=== PATIENT | female | born 1980 | race Asian ===

== ENCOUNTER → 2018-02-12 | Outpatient (CLI) | payer OTHER | END | disposition home or self-care (01) | LOC: CVU 13:56 | PROVIDERS: ATTEND Genetic Counselor, MS | DX: I87.2 Venous insufficiency (chronic) (peripheral) (principal); I83.813 Varicose veins of bilateral lower extremities with pain | CPT/HCPCS: 93970 ==

== ENCOUNTER → 2018-04-07 | Outpatient (CLI) | payer OTHER | END | disposition home or self-care (01) | LOC: CVU 08:36 | PROVIDERS: ATTEND Internal Medicine Cardiovascular Disease | DX: I87.2 Venous insufficiency (chronic) (peripheral) (principal) | CPT/HCPCS: 93971 ==

== ENCOUNTER 2018-04-27 15:47 | Emergency (ER) | payer OTHER ==
[~2018-04-27] VITALS: Ht 160 cm; Wt 89.9 kg
[2018-04-27 15:58] VITALS: BP 155/100
== END 2018-04-27 17:01 | disposition home or self-care (01) ==
LOC: ED 16:45
DX: I80.02 Phlebitis and thrombophlebitis of superficial vessels of left lower extremity (principal)
CPT/HCPCS: 99284

== ENCOUNTER 2020-06-11 12:51 | Emergency (ER) | payer OTHER ==
[~2020-06-11] VITALS: Ht 160 cm; Wt 90.5 kg
[2020-06-11 13:05] VITALS: BP 173/98
--- NOTE | 2020-06-11 14:04 | NUR ---
PT UPRIGHT ON GURNEY AWAKE & COMFORTABLE, RESPONDS APPROP TO STAFF, NAD AT REST, NO NEEDS AT THIS TIME, CALL LIGHT WITHN REACH.
--- NOTE | 2020-06-11 14:50 | NUR ---
Patient given discharge instructions and Rx, they have confirmed that they understand the instructions. Patient ambulatory with steady gait.
== END 2020-06-11 14:52 | disposition home or self-care (01) ==
LOC: ED 14:32
DX: L03.113 Cellulitis of right upper limb (principal)
CPT/HCPCS: 99283

== ENCOUNTER → 2020-08-15 | Outpatient (CLI) | payer OTHER | END | disposition home or self-care (01) | LOC: CFH 13:12 | PROVIDERS: ATTEND Family Medicine | DX: Z12.31 Encounter for screening mammogram for malignant neoplasm of breast (principal) | CPT/HCPCS: 77063; 77067 ==